=== PATIENT | female | born 1965 | race Caucasian/White ===

== ENCOUNTER 2017-03-28 12:28 | Emergency (ER) | payer OTHER | END 2017-03-28 13:12 | disposition home or self-care (01) | LOC: E/R 12:28 | DX: M54.5 Low back pain (principal); R42 Dizziness and giddiness | CPT/HCPCS: 93005; 99283-25 ==

== ENCOUNTER 2017-10-21 10:44 | Day surgery (SDC) | payer OTHER ==
[~2017-10-21 10:44] MED LIST: LACTATED RINGER'S 1,000 ML IV
[2017-10-21] MEDS ORDERED: MIDAZOLAM 1 MG/ML 2 ML INJ (12:50)
[2017-10-21] MEDS ORDERED: PROPOFOL 20 ML (12:50)
[2017-10-21] MEDS ORDERED: LIDOCAINE 2% (SDV) 5 ML INJ (12:50)
[2017-10-21] MEDS ORDERED: FENTAnyl 50 MCG/ML VIAL ×2 (12:50→13:52)
[2017-10-21] MEDS ORDERED: ONDANSETRON 4 MG INJ (12:51)
[2017-10-21] MEDS ORDERED: PHENYLephrine (100 MCG/ML) 5ML SYG (12:51)
[2017-10-21] MEDS ORDERED: DEXAMETHASONE 4 MG/ML 1 ML INJ (12:51)
[2017-10-21] MEDS ORDERED: CEFAZOLIN 1 GM INJ (12:57)
[2017-10-21] MEDS ORDERED: FENTAnyl 50 MCG/ML VIAL IV (13:00)
[2017-10-21] MEDS ORDERED: MEPERIDINE 25 MG INJ IV (13:00)
[2017-10-21] MEDS ORDERED: OXYCODONE/ACETAMINOPHEN (5/325) TAB PO ×2 (13:00)
[2017-10-21] MEDS ORDERED: LABETALOL HCL 20MG INJ IV (13:00)
[2017-10-21] MEDS ORDERED: METOCLOPRAMIDE 10 MG INJ (13:24)
[2017-10-21] MEDS ORDERED: BUPIVACAINE 0.5%/EPI (SDV) 30 ML INJ (13:49)
[2017-10-21] MEDS: BUPIVACAINE 0.5%/EPI (SDV) 30 ML INJ INJ (14:11)
[2017-10-21] MEDS: ONDANSETRON 4 MG INJ IV (14:51)
[2017-10-21] MEDS: FENTAnyl 50 MCG/ML VIAL IV (15:08)
== END 2017-10-21 16:03 | disposition home or self-care (01) ==
LOC: SDS 10:44
DX: N92.1 Excessive and frequent menstruation with irregular cycle (principal); N93.8 Other specified abnormal uterine and vaginal bleeding
CPT/HCPCS: 58558; 88305